=== PATIENT | female | born 1995 | race Caucasian/White ===

== ENCOUNTER → 2016-07-08 | Outpatient (CLI) | payer OTHER ==
[~2016-07-08] MED LIST: A/B OTIC15 ML; AMOXI PO; BEN25 PO; LEVAQUIN750 MG PO; MEDDP PO; MOTRIN800 MG PO; OMEPRAZOLE20 M2 PO; PULMICORT180 MCG/Ac IH; SYMBICORT1 AE2 INH; VENTOLIN H0.09 MG/A1 INH; ZOF4 PO; [UNRECOGNIZED DRUG - OTHER] PO
[2016-07-08 15:58] LABS: BASOPHIL % 0.4 % (0-2); PLATELET COUNT 371 x10^3mcL (130-400)
[2016-07-08 15:59] LABS: RED CELL DISTRIBUTION WIDTH 15.7 % (11.5-14.5)
== END | disposition home or self-care (01) ==
LOC: LB 15:20
PROVIDERS: Obstetrics & Gynecology
DX: Z33.1 Pregnant state, incidental (principal)